=== PATIENT | female | born 1975 | race Caucasian/White ===

== ENCOUNTER 2018-06-22 02:37 | Emergency (ER) | payer OTHER ==
[~2018-06-22] VITALS: Ht 157.5 cm; Wt 88.9 kg
[2018-06-22 03:21] VITALS: Ht 157.5 cm; Wt 88.9 kg
[2018-06-22 07:43] LABS: CALCIUM 9.5 mg/dL (8.5-10.1); CARBON DIOXIDE 24.2 mmol/L (21-32); CHLORIDE SERUM 106 mmol/L (98-107); CREATININE SERUM 0.7 mg/dL (0.6-1.0); GFR1 > 60 mL/min; GLUCOSE SERUM 82 mg/dL (74-106); POTASSIUM SERUM 4.1 mmol/L (3.5-5.1); SODIUM SERUM 140 mmol/L (136-145)
[2018-06-22 08:15] VITALS: BP 168/88
== END 2018-06-22 08:15 | disposition home or self-care (01) ==
LOC: ED 02:37
PROVIDERS: Emergency Medicine
DX: H44.002 Unspecified purulent endophthalmitis, left eye (principal); I10 Essential (primary) hypertension